=== PATIENT | male | born 1960 | race African-American/Black ===

== ENCOUNTER 2018-05-16 17:52 | Inpatient (IN) ==
[2018-05-17] MEDS: INSULIN REGULAR 100 UNIT/ML SUBCUT SCH ×2 (01:41→07:38)
[2018-05-17 05:25] LABS: INR 1.1; PT Patient Result 11.4 SECS
[2018-05-17 06:41] LABS: Apearance,Urine Slightly Hazy (Clear); Bilirubin,Urine Negative (Negative); Blood, Urine Moderate mg/dL (Negative); Glucose,Urine (UA) 150 mg/dL (Negative); Granular Casts,Urine 3 /LPF (0-1); Ketones,Urine Negative (Negative); Nitrite,Urine Negative (Negative); Protein,Urine 100 MG/DL; RBC,Urine 1 /HPF (0-4); Squamous Epithelial Cell,Urine Occasional /HPF (0-10); Urine Color Straw (Yellow); Urine Specific Gravity 1.012 (1.001-1.035); Urine Urobilinogen < 2.0 EU/DL (0.2-1.0); WBC,Urine 4 /HPF (0-6)
[2018-05-17] MEDS ORDERED: ACETAMINOPHEN 325 MG TABLET PO PRN (07:37)
[2018-05-17] MEDS ORDERED: ONDANSETRON 4 MG/2 ML VIAL IV PRN (07:37)
[2018-05-17] MEDS ORDERED: MAGNESIUM HYDROXIDE SUSP 30 ML UDCUP PO PRN (07:37)
[2018-05-17] MEDS ORDERED: FUROSEMIDE 40 MG/4 ML VIAL IV ONE (08:00)
[2018-05-17] MEDS ORDERED: SODIUM CHLORIDE 0.45% 1,000 ML IV SCH (08:00)
[2018-05-17] MEDS ORDERED: CARVEDILOL 12.5 MG TABLET PO SCH (08:00)
[2018-05-17] MEDS: ALBUTEROL/IPRATROPIUM 3 ML NEB RESP TX SCH ×3 (08:18→19:17)
[2018-05-17 08:20] LABS: Basophils % 0.6 % (0.0-0.8); Eosinophils # 0.2 10*3/uL (0.0-0.87); Eosinophils % 4.2 % (0.00-10.9); Hematocrit 27.6 VOL% (42.0-52.0); Hemoglobin 8.6 GM/DL (14.0-18.0); Immature Granulocytes % 0.2 %; Immature Granulocytes Absolute 0.01 #; Lymphocytes # 1.3 10*3/uL (1.4-4.0); Lymphocytes % 26.7 % (21.2-54.2); Mean Corpuscular HGB Conc 31.2 GM/DL (32-36); Mean Corpuscular Hemoglobin 26 PG (27-34); Mean Corpuscular Volume 82.6 FL (87-102); Mean Platelet Volume 12.1 FL (9.6-12.0); Monocytes # 0.5 10*3/uL (0.11-0.8); Monocytes % 9.4 % (1.7-12.7); Neutrophils % 58.9 % (38.7-73.9); Platelet Count 202 T/CUMM (130-400); Red Blood Count 3.34 MC/CUMM (3.8-5.5); Red Cell Distribution Width 14.6 % (9.3-17.3)
[2018-05-17 08:49] LABS: Alanine Aminotransferase 19 U/L (16-61); Albumin 2.8 G/DL (3.4-5.0); Alkaline Phosphatase 101 U/L (45-117); Aspartate Amino Transferase 11 U/L (0-37); Bilirubin,Total < 0.39 MG/DL (0.2-1.0); Blood Urea Nitrogen 84 MG/DL (7-18); Glucose 117 MG/DL (74-106); Osmolality,Calculated 312.8 MOS/KG (273-304); Potassium 4.1 MMOL/L (3.5-5.1); Sodium 144 MMOL/L (136-145); Total Protein 6.4 G/DL (6.4-8.3)
[2018-05-17 08:55] LABS: Calcium 5.2 MG/DL (8.5-10.1)
[2018-05-17] MEDS: ATORVASTATIN 40 MG TABLET PO SCH (09:43)
[2018-05-17] MEDS: PANTOPRAZOLE 40 MG TABLET PO SCH (09:43)
[2018-05-17] MEDS ORDERED: MAGNESIUM SULF RIDER 2 GM in PREMIX 1 EACH IV ONE (10:30)
[2018-05-17] MEDS: INSULIN LISPRO 100 UNIT/ML SUBCUT SCH ×3 (12:02→21:07)
[2018-05-17] MEDS ORDERED: HEPARIN 5,000 UNIT/1 ML VIAL ONE (12:03)
[2018-05-17] MEDS ORDERED: LIDOCAINE 1%/EPI INJ 20 ML VIAL ONE (12:03)
[2018-05-17] MEDS ORDERED: fentaNYL 100 MCG/2 ML VIAL ONE (13:17)
[2018-05-17] MEDS ORDERED: MIDAZOLAM 2 MG/2 ML VIAL ONE (13:17)
[2018-05-17] MEDS ORDERED: PROPOFOL 200 MG/20 ML VIAL IV ONE (13:18)
[2018-05-17] MEDS ORDERED: HEPARIN 10,000 UNIT/10 ML VIAL IV PRN (16:33)
[2018-05-17] MEDS: CARVEDILOL 6.25 MG TABLET PO SCH (21:01)
[2018-05-18] MEDS: ALBUTEROL/IPRATROPIUM 3 ML NEB RESP TX SCH ×4 (00:15→20:49)
[2018-05-18 05:54] LABS: Basophils % 0.5 % (0.0-0.8); Eosinophils # 0.1 10*3/uL (0.0-0.87); Eosinophils % 2.6 % (0.00-10.9); Hematocrit 28.2 VOL% (42.0-52.0); Hemoglobin 8.5 GM/DL (14.0-18.0); Immature Granulocytes % 0.4 %; Immature Granulocytes Absolute 0.02 #; Lymphocytes # 1.1 10*3/uL (1.4-4.0); Lymphocytes % 19.3 % (21.2-54.2); Mean Corpuscular HGB Conc 30.1 GM/DL (32-36); Mean Corpuscular Hemoglobin 25 PG (27-34); Mean Corpuscular Volume 82.9 FL (87-102); Mean Platelet Volume 12.3 FL (9.6-12.0); Monocytes # 0.6 10*3/uL (0.11-0.8); Neutrophils # 3.7 10*3/uL (1.4-7.4); Neutrophils % 67.2 % (38.7-73.9); Platelet Count 186 T/CUMM (130-400); Red Cell Distribution Width 14.2 % (9.3-17.3); White Blood Count 5.5 T/CUMM (4-12)
[2018-05-18 06:32] LABS: Alanine Aminotransferase 16 U/L (16-61); Albumin 2.7 G/DL (3.4-5.0); Alkaline Phosphatase 96 U/L (45-117); Aspartate Amino Transferase 8 U/L (0-37); Bilirubin,Total < 0.39 MG/DL (0.2-1.0); Blood Urea Nitrogen 56 MG/DL (7-18); Cholesterol 100 MG/DL (50-200); Glucose 108 MG/DL (74-106); HDL Cholesterol 31 MG/DL (40-60); Osmolality,Calculated 297.3 MOS/KG (273-304); Potassium 4.5 MMOL/L (3.5-5.1); Risk Ratio 3.23; Sodium 141 MMOL/L (136-145); Triglycerides 95 MG/DL (2-150)
[2018-05-18] MEDS: INSULIN LISPRO 100 UNIT/ML SUBCUT SCH ×4 (07:55→21:20)
[2018-05-18] MEDS ORDERED: HEPARIN 10,000 UNIT/10 ML VIAL IV SCH (08:00)
[2018-05-18] MEDS: ASPIRIN EC 81 MG TABLET PO SCH ×2 (08:14→14:22)
[2018-05-18] MEDS: CARVEDILOL 6.25 MG TABLET PO SCH ×3 (08:14→21:20)
[2018-05-18] MEDS: ATORVASTATIN 40 MG TABLET PO SCH ×2 (08:14→14:21)
[2018-05-18] MEDS: PANTOPRAZOLE 40 MG TABLET PO SCH ×2 (08:14→14:22)
[2018-05-18] MEDS ORDERED: POTASSIUM CHLORIDE RIDER 10 MEQ in PREMIX 1 EACH IV PRN (14:17)
[2018-05-18] MEDS ORDERED: MAGNESIUM SULF RIDER 2 GM in PREMIX 1 EACH IV PRN (14:17)
[2018-05-19] MEDS: ALBUTEROL/IPRATROPIUM 3 ML NEB RESP TX SCH ×4 (00:35→19:32)
[2018-05-19 05:00] LABS: Basophils % 0.6 % (0.0-0.8); Eosinophils # 0.2 10*3/uL (0.0-0.87); Eosinophils % 4.5 % (0.00-10.9); Immature Granulocytes % 0.2 %; Immature Granulocytes Absolute 0.01 #; Lymphocytes # 1.6 10*3/uL (1.4-4.0); Lymphocytes % 29.8 % (21.2-54.2); Mean Corpuscular Hemoglobin 25 PG (27-34); Mean Corpuscular Volume 82.9 FL (87-102); Mean Platelet Volume 11.7 FL (9.6-12.0); Monocytes # 0.7 10*3/uL (0.11-0.8); Monocytes % 13.1 % (1.7-12.7); Neutrophils # 2.8 10*3/uL (1.4-7.4); Neutrophils % 51.8 % (38.7-73.9); Platelet Count 202 T/CUMM (130-400); Red Blood Count 3.62 MC/CUMM (3.8-5.5); White Blood Count 5.3 T/CUMM (4-12)
[2018-05-19 05:14] LABS: Calcium 6.4 MG/DL (8.5-10.1); Osmolality,Calculated 288.7 MOS/KG (273-304); Potassium 4.2 MMOL/L (3.5-5.1)
[2018-05-19 05:44] LABS: Albumin 2.8 G/DL (3.4-5.0); Bilirubin,Total 0.5 MG/DL (0.2-1.0); Calcium 6.3 MG/DL (8.5-10.1); Osmolality,Calculated 288.7 MOS/KG (273-304); Potassium 4.2 MMOL/L (3.5-5.1); Total Protein 6.5 G/DL (6.4-8.3)
[2018-05-19] MEDS: INSULIN LISPRO 100 UNIT/ML SUBCUT SCH ×4 (07:29→21:33)
[2018-05-19] MEDS: ASPIRIN EC 81 MG TABLET PO SCH ×2 (07:30→08:00)
[2018-05-19] MEDS: PANTOPRAZOLE 40 MG TABLET PO SCH ×2 (07:30→08:01)
[2018-05-19] MEDS: ATORVASTATIN 40 MG TABLET PO SCH ×2 (07:30→08:00)
[2018-05-19] MEDS: CARVEDILOL 6.25 MG TABLET PO SCH ×3 (07:30→21:31)
[2018-05-19] MEDS ORDERED: diphenhydrAMINE CAP 25 MG CAPSULE PO ONE (08:00)
[2018-05-19] MEDS ORDERED: DIAZEPAM 5 MG TABLET PO ONE (08:00)
[2018-05-19] MEDS ORDERED: LIDOCAINE 1% 20 ML VIAL ONE (08:18)
[2018-05-19] MEDS ORDERED: HYDROmorphone 2 MG/1 ML VIAL ONE (08:18)
[2018-05-19] MEDS ORDERED: MIDAZOLAM 2 MG/2 ML VIAL ONE (08:18)
[2018-05-19] MEDS ORDERED: NITROGLYCERIN SL 0.4 MG TABLET SL PRN (09:11)
[2018-05-19] MEDS ORDERED: ZALEPLON 5 MG CAPSULE PO PRN (09:11)
[2018-05-19 14:31] LABS: Hepatitis A Ab IgM Quant 0.14 Index; Hepatitis A Ab IgM Result Negative (Negative); Hepatitis B Core IgM Quant < 0.05 Index; Hepatitis B Core IgM Result Negative (Negative); Hepatitis B Surface Ag Quant < 0.10 Index; Hepatitis B Surface Ag Result Negative (Negative); Hepatitis C Virus Ab Quant 0.02 Index; Hepatitis C Virus Ab Result Negative (Negative)
[2018-05-20] MEDS: ALBUTEROL/IPRATROPIUM 3 ML NEB RESP TX SCH ×4 (01:43→19:57)
[2018-05-20 04:47] LABS: Basophils % 0.6 % (0.0-0.8); Eosinophils # 0.2 10*3/uL (0.0-0.87); Eosinophils % 2.9 % (0.00-10.9); Hematocrit 28.7 VOL% (42.0-52.0); Hemoglobin 8.6 GM/DL (14.0-18.0); Immature Granulocytes % 0.3 %; Immature Granulocytes Absolute 0.02 #; Lymphocytes # 1.8 10*3/uL (1.4-4.0); Lymphocytes % 26.5 % (21.2-54.2); Mean Corpuscular Hemoglobin 25 PG (27-34); Mean Platelet Volume 11.6 FL (9.6-12.0); Monocytes % 15.2 % (1.7-12.7); Neutrophils # 3.7 10*3/uL (1.4-7.4); Neutrophils % 54.5 % (38.7-73.9); Platelet Count 186 T/CUMM (130-400); Red Cell Distribution Width 14.4 % (9.3-17.3); White Blood Count 6.8 T/CUMM (4-12)
[2018-05-20 05:12] LABS: Calcium 6.3 MG/DL (8.5-10.1); Osmolality,Calculated 288.5 MOS/KG (273-304); Potassium 4.2 MMOL/L (3.5-5.1)
[2018-05-20 05:13] LABS: Calcium 6.4 MG/DL (8.5-10.1); Osmolality,Calculated 291.4 MOS/KG (273-304); Potassium 4.2 MMOL/L (3.5-5.1)
[2018-05-20 05:25] LABS: Alanine Aminotransferase 17 U/L (16-61); Albumin 2.5 G/DL (3.4-5.0); Alkaline Phosphatase 116 U/L (45-117); Aspartate Amino Transferase 21 U/L (0-37); Bilirubin,Total < 0.39 MG/DL (0.2-1.0); Blood Urea Nitrogen 41 MG/DL (7-18); Calcium 6.3 MG/DL (8.5-10.1); Glucose 147 MG/DL (74-106); Osmolality,Calculated 289.5 MOS/KG (273-304); Potassium 4.2 MMOL/L (3.5-5.1); Sodium 139 MMOL/L (136-145); Total Protein 6.1 G/DL (6.4-8.3)
[2018-05-20] MEDS: PANTOPRAZOLE 40 MG TABLET PO SCH (09:31)
[2018-05-20] MEDS: ASPIRIN EC 81 MG TABLET PO SCH (09:31)
[2018-05-20] MEDS: INSULIN LISPRO 100 UNIT/ML SUBCUT SCH ×4 (09:31→21:19)
[2018-05-20] MEDS: CARVEDILOL 6.25 MG TABLET PO SCH (09:31)
[2018-05-20] MEDS: ATORVASTATIN 40 MG TABLET PO SCH (09:31)
[2018-05-20] MEDS: METOPROLOL SUCCINATE XL 25 MG TABLET PO SCH (21:19)
[2018-05-21] MEDS: ALBUTEROL/IPRATROPIUM 3 ML NEB RESP TX SCH ×2 (01:36→07:04)
[2018-05-21 05:17] LABS: Basophils % 0.3 % (0.0-0.8); Eosinophils # 0.2 10*3/uL (0.0-0.87); Eosinophils % 3.1 % (0.00-10.9); Hematocrit 31.6 VOL% (42.0-52.0); Hemoglobin 9.5 GM/DL (14.0-18.0); Immature Granulocytes % 0.4 %; Immature Granulocytes Absolute 0.03 #; Lymphocytes % 27.2 % (21.2-54.2); Mean Corpuscular HGB Conc 30.1 GM/DL (32-36); Mean Corpuscular Hemoglobin 25 PG (27-34); Mean Corpuscular Volume 82.5 FL (87-102); Mean Platelet Volume 11.3 FL (9.6-12.0); Monocytes % 13.8 % (1.7-12.7); Neutrophils % 55.2 % (38.7-73.9); Platelet Count 191 T/CUMM (130-400); Red Blood Count 3.83 MC/CUMM (3.8-5.5); Red Cell Distribution Width 14.1 % (9.3-17.3); White Blood Count 7.2 T/CUMM (4-12)
[2018-05-21 05:34] LABS: Calcium 6.8 MG/DL (8.5-10.1); Osmolality,Calculated 282.8 MOS/KG (273-304)
[2018-05-21 07:45] VITALS: BP 114/78
[2018-05-21] MEDS: INSULIN LISPRO 100 UNIT/ML SUBCUT SCH (08:51)
[2018-05-21] MEDS: PANTOPRAZOLE 40 MG TABLET PO SCH (10:10)
[2018-05-21] MEDS: METOPROLOL SUCCINATE XL 25 MG TABLET PO SCH (10:10)
[2018-05-21] MEDS: ATORVASTATIN 40 MG TABLET PO SCH (10:10)
[2018-05-21] MEDS: ASPIRIN EC 81 MG TABLET PO SCH (10:10)
== END 2018-05-21 11:10 | disposition home or self-care (01) | DRG 698 ==
LOC: N.2E 18:08
PROVIDERS: ADMIT Family Medicine; ATTEND Family Medicine
PROC: CLCCHCL (ICD-10-PCS; 2018-05-19 08:45)

== ENCOUNTER 2020-06-02 22:06 | Observation (INO) ==
[2020-06-03 03:07] LABS: Basophils # 0.1 10*3/uL (0.0-0.2); Basophils % 0.6 % (0.0-0.8); Eosinophils # 0.1 10*3/uL (0.0-0.87); Eosinophils % 0.6 % (0.00-10.9); Hematocrit 31.1 VOL% (42.0-52.0); Hemoglobin 10.4 GM/DL (14.0-18.0); Immature Granulocytes % 0.5 %; Immature Granulocytes Absolute 0.04 #; Lymphocytes # 3.2 10*3/uL (1.4-4.0); Lymphocytes % 38.8 % (21.2-54.2); Mean Corpuscular HGB Conc 33.4 GM/DL (32-36); Mean Corpuscular Volume 82.7 FL (87-102); Mean Platelet Volume 10.9 FL (9.6-12.0); Monocytes % 7.5 % (1.7-12.7); Platelet Count 241 T/CUMM (130-400); Red Blood Count 3.76 MC/CUMM (3.8-5.5); Red Cell Distribution Width 14.7 % (9.3-17.3); White Blood Count 8.4 T/CUMM (4-12)
[2020-06-03 03:26] LABS: Albumin 3.7 G/DL (3.4-5.0); Bilirubin,Total 0.6 MG/DL (0.2-1.0); Calcium 8.2 MG/DL (8.5-10.1); Total Protein 7.5 G/DL (6.4-8.3)
[2020-06-03] MEDS ORDERED: DEXTROSE 50% 25 GM/50 ML VIAL IV STA (04:36)
[2020-06-03] MEDS ORDERED: INSULIN REGULAR 100 UNIT/ML IV STA ×2 (04:36→04:37)
[2020-06-03] MEDS ORDERED: DEXTROSE 50% 25 GM/50 ML SYRINGE IV ONE (04:41)
[2020-06-03] MEDS ORDERED: CALCIUM GLUCONATE 1,000 MG in SODIUM CHLORIDE 0.9% 100 ML IV ONE (05:07)
[2020-06-03] MEDS ORDERED: SODIUM BICARBONATE 50 MEQ/50 ML VIAL IV STA (05:12)
[2020-06-03] MEDS ORDERED: hydrALAZINE 20 MG/1 ML VIAL IV PRN (05:29)
[2020-06-03] MEDS ORDERED: diphenhydrAMINE CAP 25 MG CAPSULE PO PRN (05:29)
[2020-06-03] MEDS ORDERED: ACETAMINOPHEN 325 MG TABLET PO PRN (05:29)
[2020-06-03] MEDS ORDERED: guaiFENesin/DM ER 600-30 MG TABLET PO PRN (05:29)
[2020-06-03] MEDS ORDERED: ALBUTEROL 2.5 MG/3 ML NEB RESP TX PRN (05:29)
[2020-06-03] MEDS ORDERED: ONDANSETRON 4 MG/2 ML VIAL IV PRN (05:29)
[2020-06-03] MEDS ORDERED: NICOTINE 21 MG/24 HR PATCH TRANSDERM PRN (05:29)
[2020-06-03] MEDS ORDERED: SODIUM POLYSTYRENE SULFATE 15 GM/60 ML BOTTLE PO STA (05:32)
[2020-06-03] MEDS ORDERED: NITROGLYCERIN SL 0.4 MG TABLET SL PRN (05:51)
[2020-06-03] MEDS ORDERED: INSULIN NPH/REGULAR 70/30 100 UNIT/ML SUBCUT SCH ×2 (09:00→21:00)
[2020-06-03] MEDS: SACUBITRIL/VALSARTAN 49-51 MG TABLET PO SCH ×2 (15:04→21:16)
[2020-06-03] MEDS: METOPROLOL SUCCINATE XL 25 MG TABLET PO SCH ×2 (15:04→21:16)
[2020-06-03] MEDS: CALCIUM ACETATE 667 MG CAPSULE PO SCH ×2 (15:04→17:46)
[2020-06-03 15:09] LABS: Calcium 8.6 MG/DL (8.5-10.1); Osmolality,Calculated 283.7 MOS/KG (273-304)
[2020-06-03] MEDS: PANTOPRAZOLE 40 MG TABLET PO SCH (15:38)
[2020-06-03] MEDS: ASPIRIN EC 81 MG TABLET PO SCH (15:38)
[2020-06-03] MEDS: FENOFIBRATE 160 MG TABLET PO SCH (15:39)
[2020-06-03] MEDS: ROSUVASTATIN 10 MG TABLET PO SCH (15:39)
[2020-06-04 04:04] LABS: Basophils % 0.4 % (0.0-0.8); Eosinophils # 0.1 10*3/uL (0.0-0.87); Eosinophils % 1.6 % (0.00-10.9); Hemoglobin 8.9 GM/DL (14.0-18.0); Immature Granulocytes % 0.6 %; Immature Granulocytes Absolute 0.03 #; Lymphocytes % 38.6 % (21.2-54.2); Mean Corpuscular Volume 82.6 FL (87-102); Mean Platelet Volume 10.8 FL (9.6-12.0); Monocytes % 15.9 % (1.7-12.7); Neutrophils % 42.9 % (38.7-73.9); Platelet Count 178 T/CUMM (130-400); Red Blood Count 3.27 MC/CUMM (3.8-5.5); Red Cell Distribution Width 14.9 % (9.3-17.3); White Blood Count 5.2 T/CUMM (4-12)
[2020-06-04 04:39] LABS: Albumin 2.8 G/DL (3.4-5.0); Bilirubin,Total 0.9 MG/DL (0.2-1.0); Calcium 7.6 MG/DL (8.5-10.1); Osmolality,Calculated 293.3 MOS/KG (273-304); Total Protein 5.9 G/DL (6.4-8.3)
[2020-06-04 05:02] LABS: Band Neutrophils 1 % (0-10); Eosinophils 2 % (0-10); Hypochromasia 2+; Lymphocytes 34 % (20-55); Metamyelocytes 1 %; Segmented Neutrophils 50 % (50-85); Target Cells 2+; Total Cells Counted 100
[2020-06-04 05:03] LABS: Platelet Estimate Normal
[2020-06-04 08:18] VITALS: BP 127/60
[2020-06-04] MEDS ORDERED: INSULIN NPH/REGULAR 70/30 100 UNIT/ML SUBCUT SCH (09:00)
[2020-06-04] MEDS: CALCIUM ACETATE 667 MG CAPSULE PO SCH ×2 (10:27→13:11)
[2020-06-04] MEDS: METOPROLOL SUCCINATE XL 25 MG TABLET PO SCH (13:11)
[2020-06-04] MEDS: ROSUVASTATIN 10 MG TABLET PO SCH (13:11)
[2020-06-04] MEDS: FENOFIBRATE 160 MG TABLET PO SCH (13:11)
[2020-06-04] MEDS: ASPIRIN EC 81 MG TABLET PO SCH (13:11)
[2020-06-04] MEDS: PANTOPRAZOLE 40 MG TABLET PO SCH (13:12)
[2020-06-04] MEDS: SACUBITRIL/VALSARTAN 49-51 MG TABLET PO SCH (13:15)
== END 2020-06-04 14:08 | disposition home or self-care (01) ==
LOC: SUATTDRO → N.ED 22:06 → SUATTDRO 06-03 05:29 → N.EDINP 06-03 05:29 → INTOOBSV 06-03 05:29 → N.EDINP 06-03 10:36 → N.TELEN 06-03 14:13
PROVIDERS: ADMIT Internal Medicine; ATTEND Internal Medicine Geriatric Medicine